=== PATIENT | male | born 1960 | race Caucasian/White ===

== ENCOUNTER 2020-05-12 16:06 | Emergency (ER) | payer SELFPAY ==
[2020-05-12 16:13] VITALS: BP 178/110; PULSE 94; RESP 16; TEMP 36.4; O2SAT 95; BMI 28.0
--- NOTE | 2020-05-12 18:10 | ED.UPPEXIN ---
HPI - Extremity Injury (Upper) General Chief Complaint: Extremity Injury, Upper Stated Complaint: RIGHT WRIST CYST Time Seen by Provider: 05/12/20 18:00 Source: patient Mode of arrival: Ambulatory Limitations: no limitations History of Present Illness HPI narrative: 60-year-old male nonsmoker with noncontributory medical history presents with a chief complaint of a painful swollen ?cyst? on the volar surface of his right wrist over the past few days. 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 He has pain with motion and improves with rest. He denies any numbness, tingling or weakness. He denies fever or chills. MD complaint: injury to: right Onset (ago): day(s) Other Extremity Injury: Right: wrist Other injuries: none Handedness: right Place: home Severity: mild Relieving factors: rest Exacerbating factors: movement of extremity Associated symptoms: denies other symptoms Related Data Allergies Allergy/AdvReac Type Severity Reaction Status Date / Time No Known Drug Allergies Allergy Verified 05/12/20 16:15 Review of Systems Constitutional Constitutional: Denies fatigue and Denies fever(s) Cardiovascular Cardiovascular: Denies chest pain and Denies dyspnea Respiratory Respiratory: Denies cough and Denies dyspnea Musculoskeletal Musculoskeletal: Reports arthralgias and Reports joint swelling Integumentary/Breasts Skin/Breast: Denies rash and Denies skin pain Endocrine Endocrine: Denies fatigue Patient History Social History Smoking Status: Never smoker Smoking Status: Never smoker alcohol intake frequency: a few times a month Substance Use Type: marijuana Exam Narrative Exam Narrative: GEN: AOx3 and in mild distress EYES: Pupils are equal, round, and reactive to light and accommodation. Extraoccular muscles are intact bilaterally. There is no subconjunctival hemorrhage or exudate. CHEST: Lungs are clear to auscultation bilaterally and free of wheezes, rales, or rhonchi. Heart rate is regular rhythm, there are no murmurs, clicks, rubs, or gallops. There is no chest wall tenderness. ABD: Abdomen is soft and nontender. There is no guarding or rebound. Bowel sounds are normal in all 4 quadrants. There is no mass or organomegaly. EXT: Full but painful range of motion at right wrist with a palpable, freely movable, mildly fluctuant mass on volar surface of right wrist consistent with ganglion cyst SKIN: Warm, pink, and dry. No erythema or rash Initial Vital Signs Initial Vital Signs: Vital Signs Temperature 97.5 F L 05/12/20 16:13 Pulse Rate 94 H 05/12/20 16:13 Respiratory Rate 16 05/12/20 16:13 Blood Pressure 178/110 H 05/12/20 16:13 Pulse Oximetry 95 05/12/20 16:13 Course Course Course Narrative: Patient with preferred no procedure at this point time, will wear a splint, decrease repetitive motion, it use anti-inflammatories. Return precautions given and questions answered to his apparent satisfaction Vital Signs Vital signs: Vital Signs - 8 hr 05/12/20 16:13 Temperature 97.5 F L Pulse Rate 94 H Respiratory Rate 16 Blood Pressure 178/110 H Pulse Oximetry 95 Discharge Plan Departure Patient Disposition: Home Clinical Impression: Ganglion cyst of dorsum of right wrist Instructions: DI Ganglion Cyst Activity Restrictions/Additional Instructions: *You have been diagnosed with [ganglion cyst of your right wrist.] *What to do: *Follow up with your [facility] resource line to establish with a local primary care provider *Return to ER if you should have any new, worsening or concerning symptoms, such as [increasing size, pain, redness or other bothersome symptoms] Referrals: [facility] [Outside]
== END 2020-05-12 18:50 | disposition home or self-care (01) ==
PROVIDERS: Emergency Provider Emergency Medicine
DX: M67.431 Ganglion, right wrist (principal)
CPT/HCPCS: 99281

== ENCOUNTER 2020-05-30 12:53 | Emergency (ER) | payer SELFPAY ==
[2020-05-30 15:37] VITALS: BP 181/104; PULSE 80; RESP 20; O2SAT 98
--- NOTE | 2020-05-30 19:22 | ED_ITS ---
HPI - Skin/Abscess/Foreign Bdy <HALIMA Acevedo - Last Filed: 05/30/20 19:41> General Chief complaint: Skin/Abscess/Foreign Body Stated complaint: Right arm cyst Time Seen by Provider: 05/30/20 15:53 Source: patient Mode of arrival: Ambulatory Limitations: no limitations History of Present Illness HPI narrative: This is a 60-year-old male, nonsmoker, with no contributory medical history presents to ED with known ganglion cyst in right volar aspect of wrist in radial aspect. Right dominant hand. Patient was evaluated in ED 3 weeks ago with same chief complain and feels mild tightness in dorsum mid hand and noticed mildly increase in size possibly. Patient denies numbness, tingling, weakness to affected hand. Patient reports intact sensation and mobility in his fingers and flexion and extension of his wrist. Patient currently in between medical insurance and became concerned if there's anything can be done in ED. Related Data Allergies Allergy/AdvReac Type Severity Reaction Status Date / Time No Known Drug Allergies Allergy Verified 05/12/20 16:15 Review of Systems <HALIMA Acevedo - Last Filed: 05/30/20 19:41> Review of Systems Narrative: General: Denies fever, chills, fatigue, malaise, sweats. Respiratory: Denies dyspnea, cough, wheezing, hemoptysis, sputum. Cardiovascular: Denies chest pain, palpitations, orthopnea, edema. Musculoskeletal: See HPI Skin: Denies rash, skin lesions, or other. Patient History <HALIMA Acevedo - Last Filed: 05/30/20 19:41> Social History Smoking Status: Never smoker Smoking Status: Never smoker alcohol intake frequency: a few times a month Substance Use Type: marijuana Exam <HALIMA Acevedo - Last Filed: 05/30/20 19:41> Narrative Exam Narrative: General appearance: well developed, well nourished, in no acute distress. Head: normocephalic, atraumatic, no scalp lesions, non-tender. ENT: Hearing grossly intact. Airway patent. Neck/Thyroid: neck supple, full range of motion, no visible masses or meningeal signs. No JVD, non-tender without lymphadenopathy. Skin: no suspicious rashes, lesions over visible areas. Warm and dry and appropriate color for ethnicity. Heart: no clubbing, no cyanosis, no edema. Lungs: Breathing even and unlabored. No stridor. No accessory muscles used. Able to speak in full sentences. Chest: normal shape and expansion. Abdomen: non-obese, non-distended. Neurologic: alert and oriented. Cognitive exam, [employer] and PNS grossly intact on informal exam. Psych: good eye contact, normal affect. Initial Vital Signs Initial Vital Signs: Vital Signs Pulse Rate 80 05/30/20 15:37 Respiratory Rate 20 05/30/20 15:37 Blood Pressure 181/104 H 05/30/20 15:37 Pulse Oximetry 98 05/30/20 15:37 Extrem Right upper extremity: wrist Details: tenderness (with full AROM and PROM), swelling (about 2 cm diamter of fluctuant cyst on radial aspect of volar wrist), normal vascular exam and radial pulse present; no unusual warmth and hand Details: normal to inspection and normal ROM of fingers <Sary Cui DO - Last Filed: 05/31/20 11:22> Initial Vital Signs Initial Vital Signs: Vital Signs Pulse Rate 80 05/30/20 15:37 Respiratory Rate 20 05/30/20 15:37 Blood Pressure 181/104 H 05/30/20 15:37 Pulse Oximetry 98 05/30/20 15:37 Scores <HALIMA Acevedo - Last Filed: 05/30/20 19:41> GCS Pradip coma scale eye opening: Spontaneous [place] coma scale verbal response: Orientated Pradip coma scale motor response: Obey commands [place] coma scale total score: 15 Course <HALIMA Acevedo - Last Filed: 05/30/20 19:41> Vital Signs Vital signs: Vital Signs - 8 hr 05/30/20 15:37 Pulse Rate 80 Respiratory Rate 20 Blood Pressure 181/104 H Pulse Oximetry 98 <Sary Cui DO - Last Filed: 05/31/20 11:22> Vital Signs Vital signs: Vital Signs - 8 hr 05/30/20 15:37 Pulse Rate 80 Respiratory Rate 20 Blood Pressure 181/104 H Pulse Oximetry 98 MDM - Skin/Abscess/Foreign Bdy <HALIMA Acevedo - Last Filed: 05/30/20 19:41> Differential Diagnosis Differential diagnosis: Likely other (Ganglion cyst) MDM Narrative Medical decision making narrative: This is a 60-year-old male who presents to ED with history of ganglion cyst on right radial or aspect of wrist. Patient thinks size has slightly increased and it hand feels slightly tight. No neurovascular deficit per exam. Intact sensation and distal pulses. No signs of infection. Patient informed and assures that if symptoms persist and worse involving neurovascular symptoms, he should be evaluated by orthopedist. Patient advised to continue to use wrist guard and avoid repetitive motion and to use [id number] Tylenol and or Motrin as needed for discomfort and he verbalized understanding in agreement with the treatment plan. Patient provided phone numbers to [facility]. Discharge Plan Departure Patient Disposition: Home Clinical Impression: Ganglion cyst of dorsum of right wrist Instructions: DI Ganglion Cyst Activity Restrictions/Additional Instructions: You have been diagnosed with [right dorsum aspect ganglion cyst on affected hand.]. What to do: *Take your medications as directed. You can take [id number] Tylenol and or Motrin as needed for discomfort. You can continue to use wrist support. *Follow up with your primary care provider in 2-3 days, call for an appointment. Let them know you were seen in the ED and that we asked you to be seen in follow up. If the cyst increases in size significantly and has associated neural vascular symptoms, consider following up with orthopedist. *Return to ED if you have any new, worsening, or concerning symptoms, such as [worsening symptoms, numbness tingling to fingers near the cyst and distally, fever, or any acute concerns.]. Referrals: [facility] [Provider Group] [facility] [Outside] <Sary Cui DO - Last Filed: 05/31/20 11:22> Cosign ED Attending [place] Attestation: I was immediately available in the department for consultation. Documentation has been reviewed.
== END 2020-05-30 16:17 | disposition home or self-care (01) ==
PROVIDERS: Emergency Provider Nurse Practitioner Family
DX: M67.431 Ganglion, right wrist (principal)
CPT/HCPCS: 99281